=== PATIENT | male | born 1945 | race American Indian/Alaskan Native ===

== ENCOUNTER 2019-08-30 21:35 | Emergency (ER) | payer MEDICARE ==
--- NOTE | 2019-08-30 21:48 | Emergency Department Report ---
Chief Complaint: Fall Stated Complaint: FELL OFF LADDER - HPI History of Present Illness: 73yo BM states that he fell off a ladder earlier today. He states that walking and standing increases pain. - Exam Vital Signs: Vital Signs 08/30/19 21:40 Temperature 99.0 F Pulse Rate 87 Respiratory 18 Rate Blood Pressure 174/88 O2 Sat by Pulse 98 Oximetry MSE screening note: Focused history and physical exam performed. Due to findings the following was ordered: ED Disposition for MSE Condition: Stable
[2019-08-30] MEDS ORDERED: traMADol 50 MG TAB PO ONE (22:15)
--- NOTE | 2019-08-30 22:22 | Emergency Department Report ---
HPI - General Chief Complaint: Fall Time Seen by Provider: 08/30/19 22:08 - HPI HPI: Room 7 The patient is a 73-year-old male presenting with a chief complaint of pain after fall. The patient states this evening at 17:00 while at work he fell approximately 3 feet off a ladder landing on his back. The patient states he struck the back. Did not lose consciousness. Patient complains of pain to the neck and low back. 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 - Surgical History Past Surgical History?: Yes Additional Surgical History: right knee - Family History Family history: no significant - Social History Smoking Status: Never Smoker Substance Use Type: None - Medications Home Medications: Home Medications Medication Instructions Recorded Confirmed Last Taken Type Lisinopril [Zestril TAB] 20 mg PO QDAY #30 tablet 06/13/14 Unknown Rx methOCARBAMOL [Robaxin] 500 mg PO BID #14 tab 06/13/14 Unknown Rx oxyCODONE [roxiCODONE] 5 mg PO Q6H PRN #10 tablet 06/13/14 Unknown Rx Ibuprofen [Motrin 800 MG tab] 800 mg PO Q8HR PRN #20 tablet 08/30/19 Unknown Rx traMADol [Ultram] 50 mg PO Q6HR PRN #10 tablet 08/30/19 Unknown Rx ED Review of Systems ROS: Stated complaint: FELL OFF LADDER Other details as noted in HPI Constitutional: no symptoms reported Eyes: denies: eye pain ENT: denies: throat pain Respiratory: no symptoms reported Cardiovascular: denies: chest pain Endocrine: no symptoms reported Gastrointestinal: denies: abdominal pain Genitourinary: denies: dysuria Musculoskeletal: back pain, arthralgia Physical Exam - Physical Exam Vital Signs: Vital Signs 08/30/19 21:40 Temperature 99.0 F Pulse Rate 87 Respiratory 18 Rate Blood Pressure 174/88 O2 Sat by Pulse 98 Oximetry Physical Exam: GENERAL: The patient is well-developed well-nourished male standing in room not appearing to be in acute distress. [] HEENT: Normocephalic. Atraumatic. Extraocular motions are intact. Patient has moist mucous membranes. NECK: Supple. No axial step offs. Left paraspinous pain present CHEST/LUNGS: Clear to auscultation. There is no respiratory distress noted. HEART/CARDIOVASCULAR: Regular. There is no tachycardia. There is no gallop rub or murmur. ABDOMEN: Abdomen is soft, nontender. Patient has normal bowel sounds. There is no abdominal distention. SKIN: There is no rash. There is no edema. There is no diaphoresis. NEURO: The patient is awake, alert, and oriented. The patient is cooperative. The patient has no focal neurologic deficits. The patient has normal speech and gait. Cranial nerves II through XII grossly intact, no drift MUSCULOSKELETAL: There is no axial step loss. There is no lumbar tenderness to palpation but there is pain present in the lumbar spine There is no evidence of acute injury. ED Course Vital Signs 08/30/19 21:40 Temperature 99.0 F Pulse Rate 87 Respiratory 18 Rate Blood Pressure 174/88 O2 Sat by Pulse 98 Oximetry ED Medical Decision Making - Radiology Data Radiology results: report reviewed (lumbar spine x-ray, CT head, CT cervical spine), image reviewed (lumbar spine x-ray, CT head, CT cervical spine) interpreted by me: Lumbar spine x-ray-no acute fracture Findings [facility] [address] [place] [address] XRay Report Signed Patient: MARSHALL CAMPOS MR#: [id number] : 1945 Acct:[id number] Age/Sex: 73 / M ADM Date: 08/30/19 Loc: ED Attending Dr: Ordering Physician: BRITTANY SHEIKH PA-C Date of Service: 08/30/19 Procedure(s): XR spine lumbosacral 2-3V Accession Number(s): [id number] cc: BRITTANY SHEIKH PA-C Fluoro Time In Minutes: EXAMINATION: Lumbar spine radiograph series, 3 views, 08/30/2019 CLINICAL INFORMATION: Back pain after trauma. Fall. COMPARISON: None. FINDINGS: There is gross normal alignment of the lumbar vertebral bodies. Mild multilevel degenerative disc space narrowing is noted, most prominent at the L5-S1 level. Vertebral body height appears well maintained. 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 Signer Name: Cookie Kramer MD Signed: 08/30/2019 10:35 PM Workstation Name: [id number] Transcribed By: PO Dictated By: Cookie Kramer MD Electronically Authenticated By: Cookie Kramer MD Signed Date/Time: 08/30/192234 DD/ 33 TD/TT: Findings [facility] [address] [place] [address] Cat Scan Report Signed Patient: MARSHALL CAMPOS SR MR#: [id number] : 1945 Acct:[id number] Age/Sex: 73 / M ADM Date: 08/30/19 Loc: ED Attending Dr: Ordering Physician: GUILLERMO CARLISLE MD Date of Service: 08/30/19 Procedure(s): CT head/brain wo con Accession Number(s): [id number] cc: GUILLERMO CARLISLE MD CT HEAD WITHOUT CONTRAST INDICATION / CLINICAL INFORMATION: pain after fall from ladder. TECHNIQUE: All CT scans at this location are performed using CT dose reduction for ALARA by means of automated exposure control. COMPARISON: None available. FINDINGS: HEMORRHAGE: None. EXTRA-AXIAL SPACES: Normal in size and morphology for the patient's age. VENTRICULAR SYSTEM: Normal in size and morphology for the patient's age. CEREBRAL PARENCHYMA: Mild white matter hy podensities likely related to microangiopathy. No acute territorial infarct. MIDLINE SHIFT OR HERNIATION: None. CEREBELLUM / BRAINSTEM: Tiny lacunar infarct in the left medulla. No acute abnormality. ORBITS: Normal as visualized. SOFT TISSUES of HEAD: No significant abnormality. CALVARIUM: No significant abnormality. PARANASAL SINUSES / MASTOID AIR CELLS: Normal as visualized. ADDITIONAL FINDINGS: None. IMPRESSION: 1. No acute intracranial abnormality. 2. Chronic and age-related findings. Signer Name: Meena Boyce MD Signed: 08/30/2019 11:13 PM Workstation Name: [id number] Transcribed By: DT Dictated By: Emanuel Boyce MD Electronically Authenticated By: Emanuel Boyce MD Signed Date/Time: 08/30/192312 DD/ 11 TD/TT: Findings [facility] [address] [place] [address] Cat Scan Report Signed Patient: MARSHALL CAMPOS SR MR#: [id number] : 1945 Acct:[id number] Age/Sex: 73 / M ADM Date: 08/30/19 Loc: ED Attending Dr: Ordering Physician: GUILLERMO CARLISLE MD Date of Service: 08/30/19 Procedure(s): CT cervical spine wo con Accession Number(s): [id number] cc: GUILLERMO CARLISLE MD CT CERVICAL SPINE WITHOUT CONTRAST INDICATION / CLINICAL INFORMATION: pain after fall from ladder. TECHNIQUE: Axial CT images were obtained through the cervical spine. Sagittal and coronal reformatted images were produced. All CT scans at this location are performed using CT dose reduction for ALARA by means of automated exposure control. COMPARISON: None available. FINDINGS: VERTEBRAE: No significant abnormality. ALIGNMENT: No significant abnormality. DISC SPACES: Mild multilevel discogenic spondylosis. FACET JOINTS: No significant abnormality. CRANIOCERVICAL JUNCTION:No significant abnormality. SPINAL CANAL: No significant abnormality. PARASPINAL SOFT TISSUES: No significant abnormality. ADDITIONAL FINDINGS: None. LUNG APICES: No significant abnormality of visualized lungs. IMPRESSION: 1. No acute fracture or subluxation. Signer Name: Meena Boyce MD Signed: 08/30/2019 11:25 PM Workstation Name: [id number] Transcribed By: DT Dictated By: Emanuel Boyce MD Electronically Authenticated By: Emanuel Boyce MD Signed Date/Time: 08/30/192324 DD/ 23 TD/TT: - Differential Diagnosis closed head injury, ICH, cervical strain, cervical fracture, lumbar strain, Critical care attestation.: If time is entered above; I have spent that time in minutes in the direct care of this critically ill patient, excluding procedure time. ED Disposition Clinical Impression: Closed head injury, Cervical strain, Lumbar strain Disposition: -01 TO HOME OR SELFCARE Is pt being admited?: No Does the pt Need Aspirin: No Condition: Stable Instructions: Muscle Strain (ED) Additional Instructions: Return to the emergency department should you develop worsening symptoms, inability to tolerate food or liquids, high fever or any other concerns Prescriptions: Ibuprofen [Motrin 800 MG tab] 800 mg PO Q8HR PRN #20 tablet PRN Reason: Pain, Moderate (4-6) traMADol [Ultram] 50 mg PO Q6HR PRN #10 tablet PRN Reason: Pain Referrals: GEOFFREY HIGH MD [Staff Physician] - 3-5 Days (Dr. High is a orthopedic surgeon. Please follow up with him for further evaluation) Time of Disposition: 23:44
--- NOTE | 2019-08-30 22:39 | XRay Report ---
EXAMINATION: Lumbar spine radiograph series, 3 views, 08/30/2019 CLINICAL INFORMATION: Back pain after trauma. Fall. COMPARISON: None. FINDINGS: There is gross normal alignment of the lumbar vertebral bodies. Mild multilevel degenerativ e disc space narrowing is noted, most prominent at the L5-S1 level. Vertebral body height appears wel l maintained. 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 Signer Name: Cookie Kramer MD Signed: 08/30/2019 10:35 PM Workstation Name: [id number]
--- NOTE | 2019-08-30 23:18 | Cat Scan Report ---
CT HEAD WITHOUT CONTRAST INDICATION / CLINICAL INFORMATION: pain after fall from ladder. TECHNIQUE: All CT scans at this location are performed using CT dose reduction for ALARA by means of automated e xposure control. COMPARISON: None available. FINDINGS: HEMORRHAGE: None. EXTRA-AXIAL SPACES: Normal in size and morphology for the patient's age. VENTRICULAR SYSTEM: Normal in size and morphology for the patient's age. CEREBRAL PARENCHYMA: Mild white matter hypodensities likely related to microangiopathy. No acute terr itorial infarct. MIDLINE SHIFT OR HERNIATION: None. CEREBELLUM / BRAINSTEM: Tiny lacunar infarct in the left medulla. No acute abnormality. ORBITS: Normal as visualized. SOFT TISSUES of HEAD: No significant abnormality. CALVARIUM: No significant abnormality. PARANASAL SINUSES / MASTOID AIR CELLS: Normal as visualized. ADDITIONAL FINDINGS: None. IMPRESSION: 1. No acute intracranial abnormality. 2. Chronic and age-related findings. Signer Name: Meena Boyce MD Signed: 08/30/2019 11:13 PM Workstation Name: [id number]
--- NOTE | 2019-08-30 23:29 | Cat Scan Report ---
CT CERVICAL SPINE WITHOUT CONTRAST INDICATION / CLINICAL INFORMATION: pain after fall from ladder. TECHNIQUE: Axial CT images were obtained through the cervical spine. Sagittal and coronal reformatted images wer e produced. All CT scans at this location are performed using CT dose reduction for ALARA by means of automated exposure control. COMPARISON: None available. FINDINGS: VERTEBRAE: No significant abnormality. ALIGNMENT: No significant abnormality. DISC SPACES: Mild multilevel discogenic spondylosis. FACET JOINTS: No significant abnormality. CRANIOCERVICAL JUNCTION:No significant abnormality. SPINAL CANAL: No significant abnormality. PARASPINAL SOFT TISSUES: No significant abnormality. ADDITIONAL FINDINGS: None. LUNG APICES: No significant abnormality of visualized lungs. IMPRESSION: 1. No acute fracture or subluxation. Signer Name: Meena Boyce MD Signed: 08/30/2019 11:25 PM Workstation Name: [id number]
[2019-08-31 00:40] VITALS: BP 167/80
== END 2019-08-30 22:40 | disposition home or self-care (01) ==
LOC: ED 21:35
DX: S16.1XXA Strain of muscle, fascia and tendon at neck level, initial encounter (principal); S39.012A Strain of muscle, fascia and tendon of lower back, initial encounter; S09.90XA Unspecified injury of head, initial encounter; I10 Essential (primary) hypertension; Z86.73 Personal history of transient ischemic attack (TIA), and cerebral infarction without residual deficits; Z79.899 Other long term (current) drug therapy; Z88.6 Allergy status to analgesic agent; W11.XXXA Fall on and from ladder, initial encounter; Y93.89 Activity, other specified; Y92.89 Other specified places as the place of occurrence of the external cause; Y99.8 Other external cause status
CPT/HCPCS: 70450; 72100; 72125